=== PATIENT | female | born 1980 | race Caucasian/White ===

== ENCOUNTER 2024-07-01 13:26 | Emergency (ER) | payer OTHER, SELFPAY ==
[2024-07-01 13:28] VITALS: BP 148/100; PULSE 77; TEMP 36.6; O2SAT 96; BMI 55.9
[2024-07-01 14:46] LABS: Bilirubin Urine NEGATIVE (NEGATIVE); Blood Urine NEGATIVE (NEGATIVE); Clarity Urine CLEAR (CLEAR); Color Urine YELLOW (YELLOW); Glucose Urine UA NEGATIVE (NEGATIVE); Ketones Urine NEGATIVE (NEGATIVE); Leukocyte Esterase Urine NEGATIVE (NEGATIVE); Nitrite Urine NEGATIVE (NEGATIVE); Protein Urine NEGATIVE (NEG/TRACE); Specific Gravity Urine 1.025 (1.005-1.025); Urobilinogen Urine 0.2 EU/dL (0.2-1.0)
[2024-07-01 14:47] LABS: Urine Microscopic Indicated NO
--- NOTE | 2024-07-01 15:07 | ED_ITS ---
HPI HPI - General Adult General Chief complaint: Abdominal Pain Stated complaint: LEFT FLANK PAIN Time Seen by Provider: 07/01/24 15:06 Source: patient Mode of arrival: walk-in History of Present Illness HPI narrative: Patient here complaining of left flank pain. She has had kidney stones previously. The pain started yesterday. She has noticed blood in her urine today. She took p.o. Dilaudid today at noon time. She is not actually vomiting. She is not running a fever. She has no shaking chills or rigors. She has had a previous stroke of unknown etiology otherwise she is pretty healthy. She has allergies as noted above. She is not on any antibiotics. She has not had recent instrumentation. She is states that she did she blood in her urine today wants. She was voiding more often than usual last night. Related Data Allergies Allergy/AdvReac Type Severity Reaction Status Date / Time acetaminophen [From Vicodin] Allergy Severe Vomiting Verified 07/01/24 13:38 hydrocodone [From Vicodin] Allergy Severe Vomiting Verified 07/01/24 13:38 oxycodone [From Percocet] Allergy Severe Vomiting Verified 07/01/24 13:38 Opioid HPI Opioid Management Most Recent Opioid Data: No Data to Display Exam Narrative Exam Narrative: Awake alert oriented x 3. Her left flank. She seems to have some discomfort with movement. The pain does not radiate to the left lower quadrant. Examining the back there is no gross kyphoscoliosis. There is no bruises contusions or evidence of injury. Tenderness is noted over the left costovertebral angle. S he does not have any radiation of pain to her buttock leg thigh or abdomen. Her skin integument otherwise look normal. She has very difficult venous access so I will order parenteral IM analgesia and get a CT scan as this symptom complex is consistent with a kidney stone. Constitutional Vital Signs, click to edit/add: Last Vital Signs Temp 97.8 F 07/01/24 13:28 Pulse 77 07/01/24 13:28 Resp 18 07/01/24 13:28 BP 148/100 H 07/01/24 13:28 Pulse Ox 96 07/01/24 13:28 O2 Del Method Room Air 07/01/24 13:28 Course Vital Signs Vital signs: Vital Signs Temperature 97.8 F 07/01/24 13:28 Pulse Rate 77 07/01/24 13:28 Respiratory Rate 18 07/01/24 13:28 Blood Pressure 148/100 H 07/01/24 13:28 Pulse Oximetry 96 07/01/24 13:28 Oxygen Delivery Method Room Air 07/01/24 13:28 Temperature 97.8 F 07/01/24 13:28 Pulse Rate 77 07/01/24 13:28 Respiratory Rate 18 07/01/24 13:28 Blood Pressure 148/100 H 07/01/24 13:28 Pulse Oximetry 96 07/01/24 13:28 Oxygen Delivery Method Room Air 07/01/24 13:28 Medical Decision Making MDM Narrative Medical decision making narrative: This patient CT scan is normal and does not show any obvious emergency condition or ureterolithiasis. She has asymptomatic nephrolithiasis. 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 The urinalysis top half shows no indication of blood or leukocyte esterase or nitrates. The I do not believe they have done a microscopic but I will check that. With her having urinary symptomatology and the flank pain I am compelled to consider diagnosing an infectious process and treating her with an antibiotic. Microscopic was not done by lab because there was no clinical indication to do so. Lab Data Labs: Lab Results 07/01/24 Range/Units 13:39 Urine Color Yellow (YELLOW) Urine Clarity Clear (CLEAR) Urine pH 6.0 (5.0-9.0) Ur Specific [place] 1.025 (1.005-1.025) Urine Protein Negative (NEG/TRACE) mg/dL Urine Glucose (UA) Negative (NEGATIVE) mg/dL Urine Ketones Negative (NEGATIVE) mg/dL Urine Occult Blood Negative (NEGATIVE) Urine Nitrite Negative (NEGATIVE) Urine Bilirubin Negative (NEGATIVE) Urine Urobilinogen 0.2 (0.2-1.0) EU/dL Ur Leukocyte Esterase Negative (NEGATIVE) Discharge Plan Discharge Stand Alone Forms: Work/School Release, Portal Instructions Chief Complaint: Abdominal Pain Clinical Impression: Acute left flank pain Patient Disposition: Home, Self-Care Time of Disposition Decision: 17:00 Print Language: [place] Additional Instructions: Toradol as needed for pain. Warm compresses to the area. If urinary symptoms continue go ahead and start Bactrim Referrals: Physician,Non-Staff, MD [Primary Care Provider] - 1 week
--- NOTE | 2024-07-01 15:08 | CT_ITS ---
The [address] [address] Patient Name: JOAN HUBER MRN: [id number] date: 1980 Sex: F Assigned Patient Location: ER Current Patient Location: ER Accession/Order Number: [id number] Exam Date: 07/01/2024 15:50 Report Date: 07/01/2024 16:17 At the request of: VIET OLSON Procedure: CT abdomen pelvis wo con EXAM: CT abdomen pelvis wo con HISTORY: Kidney stones COMPARISON: None. TECHNIQUE: Multiple axial images of the abdomen and pelvis are obtained without the use of IV contrast material. Coronal and sagittal reformatted sequences are submitted for review. FINDINGS: The lung bases appear clear. The heart size is normal. The liver, gallbladder, spleen, pancreas and bilateral adrenal glands appear unremarkable on this noncontrast examination. A 15 mm fat density seen in the inferior pole of the kidney, which CT appearance can be seen with benign angiomyolipoma. Additionally, punctate calculus is seen in the mid pole of the kidneys bilaterally. There is no evidence for hydronephrosis bilaterally. No ureteral calculus is seen bilaterally. The urinary bladder appears unremarkable. Nonobstructive bowel pattern is seen. Normal-appearing appendix is visualized. No significant bowel wall thickening is seen. No significant free fluid or abnormal fluid collection is seen in the abdomen and pelvis. The vascular structures demonstrate normal caliber. Retroaortic left renal vein is seen. The abdominal wall and visualized soft tissues appear unremarkable. No destructive osseous lesion is seen. CT/CT abdomen pelvis wo con IMPRESSION: Bilateral nonobstructive nephrolithiasis. A 15 mm fat density seen in the inferior pole of the kidney, which CT appearance can be seen with benign angiomyolipoma. Normal variant retroaortic left renal vein. Electronically authenticated by: CISCO IGLESIAS Date: 07/01/2024 16:17
[2024-07-01] MEDS: HYDROMORPHONE HCL 1 MG/ML CARTRIDGE 2 MG IM (15:23)
== END 2024-07-01 17:17 | disposition home or self-care (01) ==
PROVIDERS: Emergency Provider Emergency Medicine Emergency Medical Services
DX: R10.9 Unspecified abdominal pain (principal); Z87.442 Personal history of urinary calculi; Z86.73 Personal history of transient ischemic attack (TIA), and cerebral infarction without residual deficits
CPT/HCPCS: 74176; 81003; 96372; 99285; J1170